=== PATIENT | female | born 1950 | race Caucasian/White ===

== ENCOUNTER 2023-12-13 13:13 | Outpatient (CLI) | payer MEDICARE, SELFPAY ==
--- NOTE | ~2023-12-13 | XR_ITS ---
Right Knee Technique: AP, lateral, and sunrise views were obtained. Clinical History: Pain Findings: No fracture or dislocation is seen. Right knee arthroplasty in place. Soft tissues are unre markable. No joint effusion is seen. Impression: No acute abnormality. Right knee arthroplasty in place. Reviewed, dictated and finalized at location . Impression: No acute abnormality. Right knee arthroplasty in place.
--- NOTE | ~2023-12-13 | XR_ITS ---
AP view of the pelvis and AP and lateral views of the left hip Clinical history: Pain Findings: No acute fracture or dislocation is seen. There is severe left hip joint osteoarthritis, wi th joint space narrowing, sclerosis and subchondral cystic change, and marked flattening/remodeling o f the right femoral head. There is mild left hip joint degenerative change. There is degenerative spo ndylosis of the visualized lower lumbar spine. Soft tissues are unremarkable. Impression: Severe osteoarthritis of the right hip joint, as detailed above. Mild degenerative change of the left hip joint. Reviewed, dictated and finalized at location M. Impression: Severe osteoarthritis of the right hip joint, as detailed above. Mild degenerative change of the left hip joint.
== END 2023-12-13 13:14 | disposition home or self-care (01) ==
LOC: ANHIMG 13:21
PROVIDERS: PCP Internal Medicine; Visit Provider Orthopaedic Surgery
DX: M16.11 Unilateral primary osteoarthritis, right hip (principal); M25.561 Pain in right knee; Z96.651 Presence of right artificial knee joint
CPT/HCPCS: 73502; 73562

== ENCOUNTER 2023-12-14 15:16 | Outpatient (CLI) | payer MEDICARE, SELFPAY ==
--- NOTE | 2023-12-14 15:47 | ECG_ITS ---
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 Measurements Intervals [place] Rate: 70 P: 18 NV: 147 QRS: 0 QRSD: 83 T: 25 QT: 352 QTc: 382 Interpretive Statements SINUS RHYTHM BASELINE ARTIFACT- I, II, III, AVR, AVL, V1-V2 NORMAL ECG No previous ECG available for comparison Electronically Signed On 12-14-2023 16:50:14 CDT by Dylon Viveros D.O.
[2023-12-14 16:57] LABS: Hemoglobin 13.1 g/dL (12.0-15.0)
[2023-12-14 18:01] LABS: Albumin Level 4.5 g/dL (3.5-5.1); Estimated Glomerular Filt Rate > 60; Glucose 92 mg/dL (65-110)
== END 2023-12-14 15:17 | disposition home or self-care (01) ==
PROVIDERS: PCP Internal Medicine; Visit Provider Orthopaedic Surgery
DX: Z01.818 Encounter for other preprocedural examination (principal); E78.5 Hyperlipidemia, unspecified; M16.11 Unilateral primary osteoarthritis, right hip; I10 Essential (primary) hypertension
CPT/HCPCS: 36415; 82040; 82565; 82947; 85014; 85018; 93005

== ENCOUNTER 2024-02-07 11:57 | Outpatient (CLI) | payer MEDICARE, SELFPAY ==
[2024-02-07 13:24] LABS: Basophils Percent Auto 0.5 % (0.2-1.2); Eosinophils Percent Auto 0.5 % (0-4.4); Hematocrit 42.3 % (37.0-47.0); Immature Granulocyte Absolute 0.03 K/mm3 (0.00-0.031); Immature Granulocyte Percent A 0.4 % (0-0.5); Lymphocytes Absolute Auto 2.11 K/mm3 (0.9-3.2); Lymphocytes Percent Auto 25.3 % (18.3-44.2); Mean Corpuscular HGB Conc 33.1 g/dl (32-36); Mean Corpuscular Hemoglobin 32.8 pg (26-34); Mean Corpuscular Volume 99.1 fl (80-100); Mean Platelet Volume 9.2 fl (7.4-10.4); Monocytes Absolute Auto 0.7 K/mm3 (0.1-0.6); Monocytes Percent Auto 8.7 % (2.6-8.5); Neutrophils Absolute Auto 5.4 K/mm3 (1.3-6.7); Neutrophils Percent Auto 64.6 % (45.5-73.1); Platelet Count Result 187 k/mm3 (150-375); Red Blood Count 4.27 M/mm3 (4.2-5.4); Red Cell Distribution Width 13.3 % (11.5-14.5); White Blood Count 8.4 K/mm3 (4.5-10.0)
[2024-02-07 13:33] LABS: Anion Gap 10 mmol/L (4-12); Blood Urea Nitrogen 29 mg/dL (7-17); Calcium 9.8 mg/dL (8.4-10.2); Carbon Dioxide 28 mmol/L (22-30); Chloride 100 mmol/L (98-107); Estimated Glomerular Filt Rate 55; Glucose 108 mg/dL (65-110); Sodium 138 mmol/L (137-145)
[2024-02-07 13:39] LABS: Hemoglobin A1C 5.9 % (<5.7)
[2024-02-07 14:34] LABS: Urine Cotinine NEGATIVE
[2024-02-07 16:05] LABS: MRSA (PCR) NOT DETECTED (NOT DETECTE)
[2024-02-11 23:44] LABS: Carbamazepine Tegretol 9.2 mcg/mL (4.0-12.0)
== END 2024-02-07 11:58 | disposition home or self-care (01) ==
LOC: ANHSURGERY 12:01
PROVIDERS: Anesthesiology; PCP Internal Medicine; Visit Provider Orthopaedic Surgery
DX: M16.11 Unilateral primary osteoarthritis, right hip (principal); I10 Essential (primary) hypertension; G40.909 Epilepsy, unspecified, not intractable, without status epilepticus; Z01.818 Encounter for other preprocedural examination
CPT/HCPCS: 36415; 80048; 80156; 80307; 82040; 83036; 85025; 87641

== ENCOUNTER 2024-02-29 01:46 | Day surgery (SDC) | payer MEDICARE, SELFPAY ==
[2024-02-07 12:08] VITALS: BMI 32.5
--- NOTE | 2024-02-07 12:35 | PC.NURSE ---
Report to the Outpatient Waiting Room, entrance under the green pavilion located off [facility], at time _6:00 AM on date _02/29/24 . Planned Procedure Time: 7:30 AM . Time changes happen often and if your time is changed the preop area will call you the afternoon before. - You and your visitor will be asked to self-screen and do not enter if you have any COVID symptoms. - A mask is optional within the hospital at this time. Patients may have clear liquids (water, carbonated beverages, clear teas, apple juice) until 3 hours prior to surgery ( 4:30 AM)with a maximum of 20 ounces. - No food from midnight until time of surgery - Infants may have breast milk until 4 hours before surgery, infant formula 6 hours prior to surgery. - Children will be allowed to drink immediately following surgery. If applicable, please bring a bottle or sippy cup to assist with drinking. Juice, water, soda, and popsicles are readily available. For infants on formula, please bring formula the day of surgery. Pacifiers are allowed. Take the following medications with a SIP of water the morning of surgery: ___CARBAMAZEPINE DO NOT STOP ANY OF YOUR OTHER PRESCRIPTION MEDICATIONS PRIOR TO SURGERY ?EXCEPT THE FOLLOWING Medications to discontinue per physician ___HOLD ASPIRIN AND MELOXICAM 7 DA[address] OP.PER DR POWER PT STATES HOLD ALL VITAMINS AND SUPPLEMENTS 7 DAYS PRE OP.LAST DOSE 02/21/24 Please no make-up, nail mongolian, hairspray, perfume, deodorant, or body powder the day of surgery. No jewelry (including any body piercings) or valuables the day of surgery, leave them at home. Please take a shower or bath the night before, or the morning of, surgery with an antibacterial soap. Wear comfortable, loose fitting clothing. Children are encouraged to wear pajamas. - Jewelry must be removed prior to entering the operating room. Rings and piercings that are not removed may be cut off. - The hospital will not accept responsibility for valuables. - Please leave all valuables, including medications, at home the day of surgery. If you are going home after surgery, a licensed van driver helper must drive you home. - NO public transportation without another adult if you receive anesthesia. - We recommend that an adult stay with you for 24 hours following discharge. - We also recommend that you do not drive, make important decision, drink alcoholic beverages, or take any drugs that were not prescribed by your health care provider for at least 24 hours after your discharge time. Follow any additional instructions given to you from your surgeon. If you or anyone in your household have experienced Covid symptoms in the past week, please notify your surgeon or the nurse liaison at the phone number below for possible testing. VERBAL AND WRITTEN instructions given to _PATIENT AND DAUGHTER RENEE and asked if any additional questions and then verbalized understanding. Patient advised to call surgeon office or pre surgery nurse liaison [phone] if any additional questions.
[2024-02-07 12:59] VITALS: BP 148/82; PULSE 75; RESP 18; TEMP 36.9; O2SAT 98
[2024-02-29] VITALS (13 sets, daily range): BP systolic 108–167; BP diastolic 53–78; PULSE 73–92; RESP 12–20; TEMP 36.3–36.9; O2SAT 94–100
--- NOTE | ~2024-02-29 | XR_ITS ---
EXAMINATION: XR hip RT min 2V DATE: 02/29/2024 10:17 INDICATION: Right hip arthroplasty. Postop. TECHNIQUE: 2 views of right hip were obtained. COMPARISON: Right hip radiographs 02/07/2024 FINDINGS: There is a total right hip arthroplasty in near-anatomic alignment. No fracture. There is g as in the soft tissues, consistent with recent surgery. IMPRESSION: 1. Total right hip arthroplasty in near-anatomic alignment. Reviewed, dictated and finalized at location A.
--- NOTE | 2024-02-29 07:02 | WPDANESEPPF ---
Anes - Initial Pre Proc Eval Procedure: Operation Date: 02/29/24 07:30 Proposed Procedures p Right Total Hip Arthroplasty - Gallo Barbour MD Date/Time: 02/29/24 07:02 Surgeon: Gallo Barbour MD Pre Op Diagnosis: primary oa right hip Patient Data Age: 74 Gender: F Height: 1.6 m Weight: 84.3 kg Last Vital Signs Temp 97.3 F L 02/29/24 06:58 Pulse 77 02/29/24 06:58 Resp 16 02/29/24 06:58 BP 160/72 H 02/29/24 06:58 Pulse Ox 96 02/29/24 06:58 O2 Del Method Room Air 02/29/24 06:58 Allergies Allergy/AdvReac Type Severity Reaction Status Date / Time No Known Allergies Allergy Verified 02/29/24 06:51 Home Medications Medication Instructions Recorded Confirmed Type aspirin 81 mg tablet,delayed 81 mg PO DAILY 12/13/23 02/29/24 History release (Adult Low Dose Aspirin) atorvastatin 80 mg tablet 80 mg PO DAILY 12/13/23 02/29/24 History calcium carbonate 600 mg PO DAILY 12/13/23 02/29/24 History carbamazepine 200 mg tablet 300 mg PO Q12H 12/13/23 02/29/24 History cholecalciferol (vitamin D3) 1,250 1,250 mcg PO WEEKLY 12/13/23 02/29/24 History mcg (50,000 unit) capsule fluticasone propionate 50 1 spray intranasal PRN PRN Allergy 12/13/23 02/29/24 History mcg/actuation nasal Symptoms spray,suspension (Flonase Allergy Relief) furosemide 40 mg tablet (Lasix) 40 mg PO QAM 12/13/23 02/29/24 History meloxicam 15 mg tablet 15 mg PO DAILY 12/13/23 02/29/24 History tramadol 50 mg tablet 50 mg PO Q6H PRN Pain 12/13/23 02/29/24 History loratadine 10 mg tablet (Claritin) 10 mg PO DAILY 02/07/24 02/29/24 History uorqqvyq-sfdr-cfiq 8 mg-folic 400 1 tablet PO DAILY 02/07/24 02/29/24 History mcg-K 50 mcg-lutein 300 mcg tablet (Centrum Silver Women) Patient hx anesthesia problems: none Family hx anesthesia problems: none Results Review: All pre-operative results and documents have been reviewed as part of the pre-operative evaluation. 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, lumbar region Osteopenia of left hip Osteoporosis Seizure disorder Spondylolisthesis of lumbar region Vitamin D deficiency Surgical History Surgical History History of appendectomy (~1965) History of arthroscopy of left shoulder (~2007) History of breast lump/mass excision (~1994) History of carpal tunnel release (~10/13/15) right - with ulnar nerve release right elbow History of colonoscopy History of decompression of ulnar nerve History of dilation and curettage History of removal of cyst greater toe History of repair of right rotator cuff History of right knee joint replacement History of tubal ligation Hx of colonoscopy with polypectomy Family History Family History Mother Lung cancer Hypertension Father Hypertension Heart disease Leukemia Other Blood clot in leg Diabetes mellitus Seizures Social History Social History Smoking status: Never smoker Additional smoking assessment comments: DENIES ANY FORM OF TOBACCO USE Living arrangements: with family Spiritual care concerns: No Anes - Eval Final PreProcedure Day of Procedure 02/29/24 07:02 Patient weight: normal Heart: regular rate and rhythm Lungs: clear to auscultation Airway: Mallampati scale class II Neurological: alert and oriented Last oral intake: >/= 8 hours ASA classification: II Emergent: no Anesthetic plan: proceed Anesthesia type and monitoring: general ETT and standard monitoring Results Rev
--- NOTE | 2024-02-29 07:08 | WPDHPUPDATE1 ---
History and Physical Update Update Date/Time: 02/29/24 07:08 History and Physical has been reviewed, including an updated exam of the patient. There are NO changes in the patient's condition. Risks, benefits, and alternatives have been discussed and questions answered. Patient agrees to proceed with procedure.
[2024-02-29] MEDS: LACTATED RINGERS 1,000 ML 30 ML IV CONT ×2 (07:11→09:51)
[2024-02-29] MEDS: TRANEXAMIC ACID 1,000MG/ISO100 1,000 MG/100 ML BAG 200 MG IVPB (07:21)
[2024-02-29] MEDS: ceFAZolin 2 GM/D5W 50 ML 2 GM/50 ML BAG IVPB ×3 (07:30→23:51)
[2024-02-29] MEDS: SODIUM CHLORIDE 0.9% IV 37.7 ML, MORPHINE SULFATE INJ (*CRX) 2 MG, ROPivacaine HCL 1% 2... INFILTRATE (08:27)
--- NOTE | 2024-02-29 09:48 | W.PM.PROC2 ---
Procedure Note - Detailed Date of Procedure 02/29/24 Pre-op Diagnosis Advanced degenerative arthritis right hip. Post-op Diagnosis Same Procedure Performed Right Total Hip Arthroplasty Surgeon Gallo Barbour MD Anesthesia General Findings Hypertension prior to induction. 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 Sizes matched templating. Satisfactory bone quality. Description of Procedure The patient was given preoperative antibiotics. A general anesthetic was administered. The patient was carefully placed in the lateral decubitus position on the PEG board. The shoulders and hips were carefully positioned for component and leg length positioning reference. The hip was prepped and draped in the usual sterile fashion. A longitudinal incision was created over the posterior aspect of the greater trochanter. Careful dissection was brought down through the deep fascia with electrocautery. A minimally invasive optimized posterior approach to the hip was performed. The short external rotators and capsule were taken down in an L-shaped capsulotomy. The tissue was tagged for later repair using number 2 high strength suture. The femoral neck was measured and taken in situ. The femoral head was removed. The acetabulum was carefully exposed. The inferior capsule was released. The labrum was resected. The acetabulum was sequentially reamed to the intended cup size. The cup was impacted into position with excellent press-fit. Typical anatomic landmarks, including the bony contact points as well as the inferior transverse acetabular ligament were used to confirm cup positioning with preoperative templating. Attention was turned to the femur, which was carefully exposed. The hip was reamed and then broached sequentially. Excellent press-fit was obtained with the broach. The hip was trialed. Measurements were utilized, including the lesser trochanter as well as the center of the femoral head and the tip of the trochanter, and excellent assessment of the offset and leg lengths were confirmed. The real component was impacted into position. Trialing confirmed appropriate leg length and offset with soft tissue balancing as well apparent feel of the leg, both at the knee and the heel. Soft tissues were assessed using the the iliotibial band. Reduction of the posterior capsule and external rotators were also used as a secondary assessment. The hip was copiously irrigated with pulsatile lavage periodically throughout the procedure. The real components were then assembled and reduced. The hip was stable throughout typical maneuvers, including extension, external rotation to 70 degrees, the position of sleep as well as flexion to 90 degrees with internal rotation past 35 degrees. The shake test confirmed stability without impingement. Osteophytes were removed as necessary. The short external rotators and capsule were repaired back to the posterior trochanter through drill holes. The deep fascia was repaired with running number 2 barbed suture, followed by 2-0 Stratafix suture and 3-0 Stratafix suture in the dermis. Steri-Strips were placed on the skin, followed by a sterile occlusive dressing. There were no complications. Meticulous hemostasis was maintained with the AquaMantys device. The patient was brought to the recovery room in stable condition. There were no complications. Implants The Accolade II hip stem, 127 degree size 5 , was utilized with excellent press-fit. The 52 mm Trident II acetabular component was impacted with excellent press-fit stability. 10 degree elevated polyethylene liner the -2.5, 36 mm Biolox ceramic femoral head was utilized. Estimated Blood Loss 450 Drains No Packing No Pathology None sent Complications No immediate complications Condition Stable Disposition PACU [facility] Billing Surgery - Charge Forward: Surgery Billing
[2024-02-29] MEDS: fentaNYL CITRATE INJ (*CRX) 100 MCG/2 ML VIAL 25 MCG IV PUSH (10:48)
--- NOTE | 2024-02-29 11:05 | ADMGEN ---
This patient, Anabelle Montero, was admitted to 2 Medical Room 247-. Patient/family oriented to hospital policies and general routines including ID bracelet, bed and alarms, visiting hours, pain management, procedures, bathroom and other care routines, personal items, smoking policy, room service/diet, and visiting hours. Information on how to activate the Rapid Response Team has been discussed. Patient/Family are encouraged to report perceived risks to care and to ask questions if they do not understand what they are told or what they should do.
[2024-02-29] MEDS: ACETAMINOPHEN 325 MG TABLET 650 MG PO ×3 (12:04→23:51)
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
[2024-02-29] MEDS: SENNA/DOCUSATE SODIUM TABLET 2 TAB PO (17:13)
[2024-02-29] MEDS: carBAMazepine 200 MG TABLET 300 MG PO (17:14)
[2024-03-01 00:24] VITALS: BP 133/65; PULSE 84; RESP 20; TEMP 36.9; O2SAT 95
[2024-03-01] MEDS: oxyCODONE/ACETAMINOPHEN (*CRX) 5-325 MG TABLET 1 TABLET PO (00:30)
[2024-03-01 04:41] VITALS: BP 139/66; PULSE 89; RESP 20; TEMP 36.8; O2SAT 97
[2024-03-01 05:16] LABS: Basophils Percent Auto 0.3 % (0.2-1.2); Eosinophils Percent Auto 0.1 % (0-4.4); Hemoglobin 10.8 g/dL (12.0-15.0); Immature Granulocyte Absolute 0.03 K/mm3 (0.00-0.031); Immature Granulocyte Percent A 0.3 % (0-0.5); Lymphocytes Absolute Auto 1.45 K/mm3 (0.9-3.2); Lymphocytes Percent Auto 14.3 % (18.3-44.2); Mean Corpuscular HGB Conc 32.7 g/dl (32-36); Mean Corpuscular Hemoglobin 32.4 pg (26-34); Mean Corpuscular Volume 99.1 fl (80-100); Mean Platelet Volume 9.6 fl (7.4-10.4); Monocytes Absolute Auto 1.2 K/mm3 (0.1-0.6); Monocytes Percent Auto 11.3 % (2.6-8.5); Neutrophils Absolute Auto 7.5 K/mm3 (1.3-6.7); Neutrophils Percent Auto 73.7 % (45.5-73.1); Platelet Count Result 154 k/mm3 (150-375); Red Blood Count 3.33 M/mm3 (4.2-5.4); Red Cell Distribution Width 13.6 % (11.5-14.5); White Blood Count 10.2 K/mm3 (4.5-10.0)
[2024-03-01 05:31] LABS: Anion Gap 8 mmol/L (4-12); Blood Urea Nitrogen 12 mg/dL (7-17); Calcium 8.4 mg/dL (8.4-10.2); Carbon Dioxide 26 mmol/L (22-30); Chloride 102 mmol/L (98-107); Estimated CRCL calculation 86 ml/min; Estimated Glomerular Filt Rate > 60; Glucose 124 mg/dL (65-110); Sodium 136 mmol/L (137-145)
--- NOTE | 2024-03-01 05:47 | PC.NURSE ---
On 02/29/24 & 03/01/24, the INTERIOR BLOCK WIRER, [Mikala Montilla], provided care and completed [employer] documentation on this patient. I have reviewed the INTERIOR BLOCK WIRER's documentation and agree with the findings.
[2024-03-01] MEDS: ACETAMINOPHEN 325 MG TABLET 650 MG PO ×2 (05:55→11:34)
[2024-03-01] MEDS: carBAMazepine 200 MG TABLET 300 MG PO (05:55)
[2024-03-01] MEDS: oxyCODONE/ACETAMINOPHEN (*CRX) 10-325 MG TABLET 1 TAB PO (08:19)
[2024-03-01 08:41] VITALS: BP 128/61; PULSE 80; RESP 16; TEMP 37.4; O2SAT 95
[2024-03-01] MEDS: polyethylene glycoL 3350 17 GM POWD.PACK PO (09:00)
[2024-03-01] MEDS: MELOXICAM 7.5 MG TABLET 15 MG PO (09:00)
[2024-03-01] MEDS: CALCIUM CARBONATE (TUMS) 500 MG (200 MG ELEMENTAL) 600 MG BY MOUTH (09:00)
[2024-03-01] MEDS: ceFAZolin 2 GM/D5W 50 ML 2 GM/50 ML BAG IVPB (09:01)
[2024-03-01] MEDS: predniSONE 5 MG TABLET PO (09:01)
[2024-03-01] MEDS: FUROSEMIDE 40 MG TABLET PO (09:02)
[2024-03-01] MEDS: ASPIRIN 81 MG ENTERIC TABLET PO (09:02)
[2024-03-01] MEDS: LORATADINE 10 MG TABLET PO (09:02)
[2024-03-01] MEDS: ATORVASTATIN 40 MG TABLET 80 MG PO (09:02)
[2024-03-01] MEDS: THERAPEUTIC MULTIVITAMINS/MINERALS TAB (*BKC) 1 TABLET PO (09:02)
[2024-03-01] MEDS: SENNA/DOCUSATE SODIUM TABLET 2 TAB PO (09:02)
[2024-03-01 12:00] VITALS: BP 117/55; PULSE 95; RESP 18; TEMP 37; O2SAT 97
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
--- NOTE | 2024-03-01 14:47 | PM.DS ---
DS: Admitting Diagnosis Discharge Date Feb 212023 Admitting Diagnosis Djd right hip. DS: Discharge Diagnosis Discharge Diagnosis (1) Status post total hip replacement, right: Code(s): Z96.641 - Presence of right artificial hip joint Status: Acute DS: Summary Hospital Course Reason for hospitalization: Total hip arthroplasty. Hospital Course: Tolerated surgery well. Progressed appropriately with therapy. Status at Discharge Functional status at discharge: uses cane/walker Overall status at discharge: patient is progressing back to baseline Time Spent with Patient Time attestation: Total time spent providing and/or coordinating discharge services: Exam Const: General: no acute distress Resp: Effort & Inspection: normal respiratory effort Skin: Other: Wound healing well. Mepilex dressing intact. No hematoma or drainage. Neuro: Motor exam (neuro): 5/5 motor strength present throughout Sensory Exam: normal sensation Psych: Mental Status: mental status grossly normal Speech and movement: Normal speech and movement present DS: Data Data Completed and Pending Labs on day of discharge: Labs from last 24 hours 03/01/24 04:33 WBC 10.2 H RBC 3.33 L Hgb 10.8 L D Hct 33.0 L MCV 99.1 MCH 32.4 MCHC 32.7 RDW 13.6 Plt Count 154 MPV 9.6 Immature Gran % (Auto) 0.3 Neut % (Auto) 73.7 H Lymph % (Auto) 14.3 L Sharkey % (Auto) 11.3 H Eos % (Auto) 0.1 Baso % (Auto) 0.3 Lymph # (Auto) 1.45 Sharkey # (Auto) 1.2 H Eos # (Auto) 0.0 Baso # (Auto) 0.0 Abs Immat Gran (auto) 0.03 Absolute Neuts (auto) 7.5 H Absolute Nucleated RBC 0.000 Nucleated RBC % 0.0 Sodium 136 L Potassium 4.0 Chloride 102 Carbon Dioxide 26 Anion Gap 8 BUN 12 D Creatinine 0.50 L Estim Creat Clear Calc 86 Estimated GFR > 60 Glucose 124 H Calcium 8.4 Discharge Plan Discharge Patient Disposition: Home Health Service Discharge Instructions: Per Care Coordination, patient to discharge with [facility] ([phone]) for PT/OT and half-way services. Agency will call to arrange the initial visit. Patient Instructions: Antibiotic Form, Pain Management (GEN) Stand Alone Forms: General Discharge Information Follow-up/Referrals: Shepperson,Gallo P., MD [Physician] - Discharge Medications: New oxycodone-acetaminophen 5-325 mg tablet 1 - 2 tablet PO Q6H MDD 6 tablets PRN (Reason: pain) Qty: 30 0RF Continued aspirin [Adult Low Dose Aspirin] 81 mg tablet,delayed release (DR/EC) 81 mg PO DAILY atorvastatin 80 mg tablet 80 mg PO DAILY calcium carbonate 600 mg calcium (1,500 mg) tablet 600 mg PO DAILY carbamazepine 200 mg tablet 300 mg PO Q12H cholecalciferol (vitamin D3) 1,250 mcg (50,000 unit) capsule 1,250 mcg PO WEEKLY Patient Comments: TAKES ON SUNDAYS fluticasone propionate [Flonase Allergy Relief] 50 mcg/actuation spray,suspension 1 spray intranasal PRN PRN (Reason: Allergy Symptoms) Rx Instructions: administer into each nostril furosemide [Lasix] 40 mg tablet 40 mg PO QAM meloxicam 15 mg tablet 15 mg PO DAILY tramadol 50 mg tablet 50 mg PO Q6H PRN (Reason: Pain) Centrum Silver Women 8 mg iron-400 mcg-50 mcg Tablet 1 tablet PO DAILY loratadine [Claritin] 10 mg Tablet 10 mg PO DAILY
== END 2024-03-01 15:00 | disposition home health service (06) ==
LOC: ANHSURGERY 06:10 → ANH2MED 10:58
PROVIDERS: PCP Internal Medicine; Visit Provider Orthopaedic Surgery
PROC: (CPT 27130; principal; 2024-02-29 07:30)
DX: M16.11 Unilateral primary osteoarthritis, right hip (principal); G40.909 Epilepsy, unspecified, not intractable, without status epilepticus; I10 Essential (primary) hypertension; M81.0 Age-related osteoporosis without current pathological fracture; E55.9 Vitamin D deficiency, unspecified
CPT/HCPCS: 27130; 36415; 73502; 80048; 85025; 86850; 86900; 86901; 97110; 97116; 97161; 97165; 97530; 97535; A9270; C1776; J0171; J0690; J1100; J1170; J1885; J2270; J2405; J2704; J2795; J3010; J7120; J7512

== ENCOUNTER 2024-03-22 09:01 | Outpatient (CLI) | payer MEDICARE, SELFPAY ==
--- NOTE | ~2024-03-22 | XR_ITS ---
AP view of the pelvis and AP and lateral views of the right hip Clinical history: Arthroplasty Findings: No acute fracture or dislocation is seen. Right hip arthroplasty in place, without evidence of hardware complication. Left hip joint is intact, with minimal degenerative change. There is degen erative spondylosis of the visualized lumbar spine. Soft tissues are unremarkable. Impression: Right hip arthroplasty in place. Minimal left hip joint degenerative change. Reviewed, dictated and finalized at location M. Impression: Right hip arthroplasty in place. Minimal left hip joint degenerative change.
== END 2024-03-22 09:02 | disposition home or self-care (01) ==
LOC: ANHIMG 09:05
PROVIDERS: PCP Internal Medicine; Visit Provider Orthopaedic Surgery
DX: Z96.641 Presence of right artificial hip joint (principal)
CPT/HCPCS: 73502

== ENCOUNTER 2024-05-03 07:57 | Outpatient (CLI) | payer MEDICARE, SELFPAY ==
--- NOTE | ~2024-05-03 | XR_ITS ---
AP view of the pelvis and AP and lateral views of the right hip Clinical history: Pain Findings: No acute fracture or dislocation is seen. Right hip arthroplasty is unchanged. There is mil d degenerative change of the left hip joint. There is degenerative spondylosis of the lower lumbar sp ine. Soft tissues are unremarkable. Impression: Stable right hip arthroplasty. Reviewed, dictated and finalized at location . Impression: Stable right hip arthroplasty.
== END 2024-05-03 07:58 | disposition home or self-care (01) ==
PROVIDERS: PCP Internal Medicine; Visit Provider Physician Assistant Surgical
DX: Z96.641 Presence of right artificial hip joint (principal)
CPT/HCPCS: 73502